=== PATIENT | female | born 1970 ===

== ENCOUNTER 2019-12-11 06:45 | Day surgery (SDC) | payer BC ==
[~2019-12-11] VITALS: Ht 165.1 cm; Wt 85.7 kg
[~2019-12-11 06:45] MED LIST: CELEBREX200 MG PO; CYCLOBENZAPRINE10 MG PO; LISINOPRIL-HCT1 EAC2 PO; PREMARIN0.45 MG PO
[2019-12-11] MEDS ORDERED: NORCO 5-325 TA1 EACH PO (13:02)
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
--- NOTE | 2019-12-16 14:19 | PATH ---
[facility] [address], [place] [address] Signed SPECIMEN(S): A GALLBLADDER AND STONES SPECIMEN SOURCE: A. GALLBLADDER AND STONES CLINICAL HISTORY: Chronic cholecystitis, cholelithiasis. FINAL PATHOLOGIC DIAGNOSIS: Gallbladder, cholecystectomy: - Chronic cholecystitis. - Cholelithiasis. - No evidence of neoplasia. SALVATOREK:emb:C2NR MICROSCOPIC EXAMINATION: Histologic sections of all submitted blocks are examined by light microscopy. These findings, together with the gross examination, support the pathologic diagnosis. GROSS DESCRIPTION: The specimen, labeled "BC, A.," and designated on the requisition "gallbladder and stones," is received in formalin and consists of Specimen: Previously opened gallbladder. Dimensions: 9.0 x 2.8 x 1.8 cm. Serosa: Violaceous and smooth with attached adipose tissue. Cystic Duct: Obstructed by calculi. Calculi: Multiple lopez-yellow faceted/bosselated stones measuring 4.4 x 4.4 x 1.2 cm in aggregate. Mucosa: Red-brown and velvety. Wall thickness: Up to 0.7 cm. Lymph node: No pericystic lymph nodes are grossly identified. Additional: None. Wheel Inspector sections are submitted in cassette (A1). AT (under the direct supervision of a pathologist) The Gross Description was prepared using a voice recognition system. The report was reviewed for accuracy; however, sound-alike word errors, addition and/or deletions may occur. If there is any question about this report, please contact Client Services. PERFORMING LABORATORY: PATIENT NAME: MAYUR MURRAY PATHOLOGY DATE OF : 72 REPORT #: [id number] PHYSICIAN: LYNNE ZAPATA PCP: MOHSEN TORRES REPORT IS CONFIDENTIAL AND NOT TO BE RELEASED WITHOUT AUTHORIZATION [facility] [address] [address] Signed The technical component was performed by [place] [address] (Director [employer]: Mary Shelley MD; CLIA# [id number]). [facility], [address] [address] (CLIA# [id number]). Diagnostician: Raymundo Stevenson MD Pathologist Electronically Signed 12/16/2019 Copies: ~ PATIENT NAME: MAYUR MURRAY PATHOLOGY DATE OF : 72 REPORT #: [id number] PHYSICIAN: LYNNE ZAPATA PCP: MOHSEN TORRES REPORT IS CONFIDENTIAL AND NOT TO BE RELEASED WITHOUT AUTHORIZATION
== END 2019-12-11 13:40 | disposition home or self-care (01) ==
LOC: DS 06:45
PROVIDERS: Colon & Rectal Surgery
PROC: BF13YZZ Fluoroscopy of Gallbladder and Bile Ducts using Other Contrast (ICD-10-PCS; 2019-12-11)
PROC: 0FT44ZZ Resection of Gallbladder, Percutaneous Endoscopic Approach (ICD-10-PCS; principal; 2019-12-11 09:30)
DX: K80.10 Calculus of gallbladder with chronic cholecystitis without obstruction (principal); I10 Essential (primary) hypertension; E78.5 Hyperlipidemia, unspecified; E66.9 Obesity, unspecified; Z68.31 Body mass index [BMI] 31.0-31.9, adult; Z79.899 Other long term (current) drug therapy; Z79.51 Long term (current) use of inhaled steroids; Z87.891 Personal history of nicotine dependence
CPT/HCPCS: 00790; 74300; J0330; J0690; J1100; J1885; J2250; J2405; J2704; J2765; J3010; J7121; Q9967